=== PATIENT | male | born 1975 | race Caucasian/White ===

== ENCOUNTER 2017-05-13 22:26 | Inpatient (IN) | payer BC ==
[~2017-05-13] VITALS: Ht 177.8 cm; Wt 77.6 kg
[2017-05-13] MEDS ORDERED: LISI-603 PO (22:44)
[2017-05-13] MEDS ORDERED: ASPIRIN 325 MG TABLET PO ONE (22:45)
[2017-05-13] MEDS ORDERED: ASPIRIN 325 MG TABLET ONE (22:51)
[2017-05-13 23:01] LABS: CREATININE 1.2 mg/dL (0.6-1.3); POTASSIUM 3.9 mmol/L (3.5-5.1)
[2017-05-13 23:04] LABS: BASOPHILS # (AUTO) 0.1 K/uL (0.0-8.0); BASOPHILS % (AUTO) 0.7 % (0.0-2.0); EOSINOPHILS # (AUTO) 0.5 K/uL (0.0-0.7); EOSINOPHILS % (AUTO) 5.3 % (0.0-7.0); HEMATOCRIT 36.5 % (36.7-47.1); HEMOGLOBIN 12.7 g/dL (12.5-16.3); LYMPHOCYTES # (AUTO) 3.2 K/uL (20.0-40.0); LYMPHOCYTES % (AUTO) 31.2 % (20.5-51.5); MEAN CORPUSCULAR HEMOGLOBIN 32.3 uug (23.8-33.4); MEAN CORPUSCULAR HGB CONC 35 g/dL (32.5-36.3); MEAN CORPUSCULAR VOLUME 92.9 fL (73.0-96.2); MONOCYTES # (AUTO) 0.9 K/uL (2.0-10.0); NEUTROPHILS # (AUTO) 5.6 K/uL (1.8-8.9); NEUTROPHILS % (AUTO) 53.8 % (38.5-71.5); PLATELET COUNT (AUTO) 303 K/uL (152-348); RED BLOOD CELL COUNT(AUTO) 3.93 MIL/uL (4.06-5.63); WHITE BLOOD COUNT (AUTO) 10.3 K/uL (3.6-10.2)
--- NOTE | 2017-05-13 23:04 | NUR ---
Pt c/o CP, tightness, 6-7/10, for about 45 minutes STEWARD/STEWARDESS BATH, no radiation, SOB, or n/v. Pt denies SOB, dizziness, n/v, no other complaints, no distress noted. Pt is slightly pale. Pt placed on monitor, EKG -- given to MD, IV 18g left AC, Blood drawn and given to laborer yard.
[2017-05-13 23:13] LABS: BILIRUBIN,DIRECT 0.1 mg/dL (0.0-0.2); BILIRUBIN,TOTAL 0.1 mg/dL (0.2-1.0); TOTAL PROTEIN, SERUM 7.6 g/dL (6.4-8.2)
[2017-05-13] MEDS ORDERED: LORAZEPAM 2 MG/1 ML VIAL IV ONE (23:15)
[2017-05-14] VITALS (14 sets, daily range): BP systolic 32–112; BP diastolic 22–75
[2017-05-14] MEDS ORDERED: IV NS 1000 ML 1,000 ML IV PRN (00:03)
[2017-05-14] MEDS ORDERED: LORAZEPAM 1 MG TABLET ONE (00:07)
[2017-05-14] MEDS ORDERED: LORAZEPAM 0.5 MG TABLET PO PRN (00:15)
[2017-05-14] MEDS ORDERED: NITROGLYCERIN 0.4 MG/TAB BOTTLE SL ONE (00:15)
[2017-05-14] MEDS ORDERED: HYDROCODONE/APAP 5-325MG TABLET PO PRN (00:15)
[2017-05-14] MEDS ORDERED: ONDANSETRON 4 MG/2 ML VIAL IV PRN (00:15)
[2017-05-14] MEDS ORDERED: MAGNESIUM HYDROXIDE 30 ML LIQUID UDC PO PRN (00:15)
[2017-05-14] MEDS ORDERED: ACETAMINOPHEN 325 MG TABLET PO PRN (00:15)
--- NOTE | 2017-05-14 00:33 | NUR ---
Called report to Layda
--- NOTE | 2017-05-14 01:20 | NUR ---
Admitted patient from ER via . Patient able to transfer self from to bed with steady gait.Routine admission care done. Plan of care initiated.
--- NOTE | 2017-05-14 01:30 | NUR ---
Ambulated to the with steady gait. Voiding well without any problem presented.
[2017-05-14] MEDS ORDERED: LORAZEPAM 2 MG/1 ML VIAL IV STA (01:56)
[2017-05-14] MEDS ORDERED: IV NORMAL SALINE 500 ML IV STA (01:56)
--- NOTE | 2017-05-14 02:00 | NUR ---
Patient very anxious, restless, complaining of left leg numbness. Ayo Samuels SHRIMP PEELING MACHINE OPERATOR made aware. Ativan 1 mg IVP and NS 500 ml bolus given as ordered. RT at bedside for EKG ordered. Mom at bedside. Several pillows inplaced on left leg per patent request. Will continue to monitor.
[2017-05-14] MEDS ORDERED: LORAZEPAM 2 MG/1 ML VIAL ONE (02:16)
--- NOTE | 2017-05-14 02:40 | NUR ---
VS taken 98.8, 87, 18, 112/71, 97 % o RA.
[2017-05-14] MEDS ORDERED: MORPHINE SULFATE 2 MG/1 ML DISP.SYRIN IV STA (02:47)
[2017-05-14] MEDS ORDERED: MORPHINE SULFATE 4 MG/1 ML DISP.SYRIN ONE (02:51)
--- NOTE | 2017-05-14 02:56 | NUR ---
Morphine 4 mg IV given as ordered and needed. Will continue to monitor.
--- NOTE | 2017-05-14 03:04 | NUR ---
SENIOR SUPPORT ANALYST at bedside. Patient complaining of numbness on left leg, Another set VS taken as ordered. 99% RA, 102, 96/67, 20. 97.4. Will continue to monitor.
--- NOTE | 2017-05-14 03:06 | NUR ---
Patient claimed his chest pain was gone. Lying still on his right side at this time. Mom at bedside. Will monitor.
--- NOTE | 2017-05-14 03:10 | NUR ---
Mr Richards, SUPERVISOR PHOSPHORIC ACID at bedside assessing.
--- NOTE | 2017-05-14 03:27 | NUR ---
Sleeping at this time. Mother remain at bedside. No s/s of pain/discomforts at this time
[2017-05-14] MEDS ORDERED: ENOXAPARIN SODIUM 80 MG/0.8 ML DISP.SYRIN SQ ONE (04:30)
[2017-05-14] MEDS ORDERED: IV 1/2NS 1000 ML 1,000 ML IV PRN (04:45)
[2017-05-14] MEDS ORDERED: ASPIRIN 325 MG TABLET PO ONE (05:00)
--- NOTE | 2017-05-14 05:32 | NUR ---
Shift end report: Morphine and Ativan effective. No more complaint of chest pain but with on and off complaint of left leg numbness. Patient always tried to get up and stretch legs to relieve numbness. Mother remain at bedside assisting. Fall precaution maintained at all times. Patient remain calm and cooperative at this time. Continue to monitor.
--- NOTE | 2017-05-14 06:03 | NUR ---
Venous and Arterial doppler in progress.
[2017-05-14 06:17] LABS: MAGNESIUM 1.5 mg/dL (1.8-2.4); PHOSPHOROUS 5.3 mg/dL (2.5-4.9)
--- NOTE | 2017-05-14 07:30 | NUR ---
Received patient in bed awake, alert and oriented time 4. Patient seems restless, sister is by bedside stating that Ativan probably gave him restless legs . Patient is asking when he will see the tire care manager. Client states chest pain and [place] was given previously by the charge nurse will reassess as ordered. Mother is also in the patient's room
--- NOTE | 2017-05-14 08:15 | NUR ---
Informed MD that patient needs orders, that patient was c/o chest pain. MD stated that there were orders already and he might not need [place] medications
[2017-05-14] MEDS ORDERED: IOHEXOL 350 100 ML INFUS..BTL ONE (09:05)
[2017-05-14] MEDS ORDERED: IV NORMAL SALINE 100 ML ONE (09:05)
--- NOTE | 2017-05-14 09:27 | NUR ---
PT ARRIVED FROM CT SCAN VIA BED. PT IS PALE AND VERY RESTLESS, C/O OF NUMBNESS OF HIS BOTH LOWER LEGS. PLACED ON CERAMIC TILE INSTALLER. VERY TACHYCARDIC IN THE 170 BEATS/MIN. SBP IS IN THE LOW 80'S AND SATURATION IS 70% ON RA. PLACED ON NRM AND CONTINUED TO BE VERY RESTLESS, COLD CLAMMY AND DIAPHORETIC. C/O CHEST PAINS LEVEL 7/10.
--- NOTE | 2017-05-14 09:30 | NUR ---
Patient was sent down for a stat CAT scan of chest and abdomen. Patient will be transferred to ICU after to room 2. Patient BP on the left arm was 92/58 and on the right arm was 85/48. Patient still seems restless. Urine was collect. Hospitalist in the room assessing patient with family by bedside.
--- NOTE | 2017-05-14 09:35 | NUR ---
SPOKEN WITH DR FOSTER ABOUT PT'S CONDITION. STARTED ON IVF NS RUNNING FREE FLOW AT THIS TIME.
--- NOTE | 2017-05-14 10:10 | NUR ---
Gave report to ICU nurse.
--- NOTE | 2017-05-14 10:22 | NUR ---
PT CODED, DR ODONNELL AT THE BEDSIDE AND INTUBATED PT. PERFORM SPONTANEOUS CPR. DR FOSTER IS PRESENT.
--- NOTE | 2017-05-14 10:23 | NUR ---
At [address] Alisa Cordon physician. Vent setting A/C 14, TV 500 and FIO2 of 100%. Patient premedicated with Etomidate 20mg and succinylcholine 100mg. Patient diaphoretic, cold to touch HR.150, SBP 88/52.
[2017-05-14] MEDS ORDERED: MAGNESIUM SULFATE/D5W 100 ML IV SCH (10:45)
--- NOTE | 2017-05-14 10:45 | NUR ---
STARTED ON VASOPRESSORS LEVOPHED AND NEOSYNEPHRINE DRIPS FOR SBP SUPPORT. STARTED 2 EXTRA PERIPHERAL LINES.
--- NOTE | 2017-05-14 10:50 | NUR ---
Pt intubated post code blue, pt placed on vent with settings given by , A/C 18, Vt 500, FiO2 100%.. pt transfered to [facility] via 911 ambulance, in transport with: Director of unit Kevin NINO and Hazel NINO and myself.. enroute to hospital pt coded, cpr started pt ventilated with BVM.. arrival at [facility], met by and RN's in ER, cpr continued, taken to OR..
[2017-05-14 10:57] LABS: BASOPHILS % (AUTO) 0.1 % (0.0-2.0); EOSINOPHILS % (AUTO) 0.1 % (0.0-7.0); HEMATOCRIT 41.8 % (36.7-47.1); HEMOGLOBIN 13.6 g/dL (12.5-16.3); LYMPHOCYTES # (AUTO) 2.3 K/uL (20.0-40.0); LYMPHOCYTES % (AUTO) 11.1 % (20.5-51.5); MEAN CORPUSCULAR HEMOGLOBIN 32.2 uug (23.8-33.4); MEAN CORPUSCULAR HGB CONC 33 g/dL (32.5-36.3); MEAN CORPUSCULAR VOLUME 98.7 fL (73.0-96.2); MONOCYTES # (AUTO) 1.5 K/uL (2.0-10.0); MONOCYTES % (AUTO) 7.3 % (0.0-11.0); NEUTROPHILS % (AUTO) 81.4 % (38.5-71.5); PLATELET COUNT (AUTO) 283 K/uL (152-348); RED BLOOD CELL COUNT(AUTO) 4.23 MIL/uL (4.06-5.63); WHITE BLOOD COUNT (AUTO) 20.9 K/uL (3.6-10.2)
--- NOTE | 2017-05-14 11:00 | NUR ---
2 UNIT OS PRBC GIVEN FULL BLAST ORDERTED. DR ODONNELL CALLED UP FOR 911 TO TRANSFER PT TO [facility] FOR A HIGHER LEVEL OF CARE.
[2017-05-14 11:02] LABS: CREATININE 2.2 mg/dL (0.6-1.3); POTASSIUM 4.7 mmol/L (3.5-5.1)
--- NOTE | 2017-05-14 11:10 | NUR ---
911 in the unit and at this time patient taken via 911 transfer to [facility] As requested and ordered by Dr. Alisa Cordon Physician, who arrange the transfer. Patient accompanied by 2 Registered nurses and one respiratory therapist. and 911 transfer personnel.
[2017-05-14 11:14] LABS: *AMPHETAMINE, URINE NEGATIVE (NEGATIVE); *BARBITURATE, URINE NEGATIVE (NEGATIVE); *CANNABINOID, URINE POSITIVE (NEGATIVE); *COCCAINE, URINE NEGATIVE (NEGATIVE); *OPIATE, URINE POSITIVE (NEGATIVE); *PHENCYCLIDINE SCREEN,URINE NEGATIVE (NEGATIVE)
[2017-05-14 11:16] LABS: ABG BASE EXCESS -29.5 mmol/L; ABG HCO3 7.6 mmol/L; ABG PCO2 64.3 mmHg (35.0-45.0); ABG PH 6.691 (7.350-7.450); ABG PO2 63.3 mmHg (75.0-100.0); ABG SITE RIGHT RADIAL; ABG TOTAL HEMOGLOBIN 13.5 G/dL (13.5-18.0); COHb 0.9 % (0.5-1.5); MetHb 0.5 % (0.0-1.5); O2Hb 64.5 % (94.0-97.0); VENT MODE VENT - A/C; VT, ABG 500 mL
--- NOTE | 2017-05-14 11:25 | NUR ---
Troponin of 4.30 and Lactic acid of 15.4 reported at this time. Patient on his way to [facility]. MD and transfer R.Linnea. notified.
--- NOTE | 2017-05-14 11:30 | NUR ---
911 TEAM CAME IN, PT TRANSFERRED TO [facility] ACCOMPANIED BY THE 911 TEAM, PRIMARY AND SECONDARY RN AND ONE RT. PT STILL HEMODYNAMICALLY UNSTABLE. FAMILY AWARE AND DR FOSTER AND DR ODONNELL HAVE SPOKEN TO THEM.
[2017-05-14] MEDS ORDERED: PHENYLEPHRINE 10 MG/1 ML VIAL IV ONE (11:48)
[2017-05-14] MEDS ORDERED: DEXTROSE 5% IV ONE ×2 (11:52→19:20)
[2017-05-14] MEDS ORDERED: EPINEPHRINE 1:10,000 1 MG/10 ML DISP.SYRIN MC ONE (19:20)
[2017-05-14] MEDS ORDERED: IV NORMAL SALINE 250 ML BAG IV ONE (19:20)
[2017-05-14] MEDS ORDERED: NOREPINEPHRINE BITARTRATE 4 MG/4 ML VIAL IV ONE (19:20)
[2017-05-14] MEDS ORDERED: SUCCINYLCHOLINE CHLORIDE 200 MG/10 ML VIAL MC ONE (19:20)
[2017-05-14] MEDS ORDERED: NORMAL SALINE FLUSH 10 ML DISP.SYRIN IV ONE (19:20)
[2017-05-14] MEDS ORDERED: ATROPINE SULFATE 1 MG/10 ML DISP.SYRIN IV ONE (19:20)
[2017-05-14] MEDS ORDERED: ETOMIDATE 20 MG/10 ML VIAL MC ONE (19:20)
[2017-05-14] MEDS ORDERED: ATORVASTATIN 40 MG TABLET PO SCH (21:00)
== END 2017-05-14 11:30 | disposition short-term general hospital (02) | DRG 299 ==
LOC: ER 22:27 → TELE 23:44 → CCU 05-14 09:25
PROVIDERS: ADMIT Hospitalist; ATTEND Hospitalist
PROC: 30233N1 Transfusion of Nonautologous Red Blood Cells into Peripheral Vein, Percutaneous Approach (ICD-10-PCS; principal; 2017-05-14)
PROC: 0BH17EZ Insertion of Endotracheal Airway into Trachea, Via Natural or Artificial Opening (ICD-10-PCS; 2017-05-14)
PROC: 5A12012 Performance of Cardiac Output, Single, Manual (ICD-10-PCS; 2017-05-14)
DX: I71.02 Dissection of abdominal aorta (principal); I46.9 Cardiac arrest, cause unspecified; J96.01 Acute respiratory failure with hypoxia; J81.1 Chronic pulmonary edema; N02.8 Recurrent and persistent hematuria with other morphologic changes
CPT/HCPCS: 36415; 36600; 70030-TC; 71045; 71275; 80307; 83605; 83735; 84100; 85025; 85730; 86850; 86900; 86901; 86920; 93005; A4663; J0171; J0330; J0461; J1650; J2060; J2270; J2370; J3490; J7030; J7040; J7050; J7060; P9016-BL; P9021; Q9967